=== PATIENT | male | born 1980 | race Caucasian/White ===

== ENCOUNTER → 2020-08-21 07:50 | Outpatient (CLI) | payer OTHER ==
[2020-08-21 09:01] LABS: BASOPHILS 0.2 % (0-2); EOSINOPHILS 7.1 % (0-7); HEMATOCRIT 43.1 % (42.0-54.0); HEMOGLOBIN 14.6 g/dL (13.5-17.5); IMMATURE GRANULOCYTES 0.2 % (0-5); LYMPHOCYTE ABS# 1.98 10x3/uL (1.32-3.57); LYMPHOCYTES 33.6 % (15-50); MCH 29.4 pg (26.0-34.0); MCHC 33.9 g/dL (31.0-37.0); MCV 86.7 fL (80.0-100.0); MEAN PLATELET VOLUME 9.7 fL (7.4-10.4); NEUTROPHIL ABS# 3.06 10x3/uL (1.78-5.38); NEUTROPHILS 51.9 % (40-80); PLATELET COUNT 209 10x3/uL (130-400); RBC 4.97 10x6/uL (4.20-6.10); RDW 12.2 % (11.5-14.5); WBC 5.9 10x3/uL (4.8-10.8)
[2020-08-21 09:13] LABS: PROTIME 12.2 SECONDS (11.6-15.0)
[2020-08-21 09:17] LABS: ALBUMIN 3.6 g/dL (3.4-5.0); ALKALINE PHOSPHATASE 80 U/L (30-120); ALT (SGPT) 20 U/L (10-68); BILIRUBIN - TOTAL 0.38 mg/dL (0.2-1.3); CALC OSMOLALITY 276 mosm/kg (275-300); CALCIUM 8.7 mg/dL (8.5-10.1); CHLORIDE - SERUM 104 mmol/L (98-107); CREATININE - SERUM 0.8 mg/dL (0.6-1.3); GLUCOSE 112 mg/dL (74-106); POTASSIUM - SERUM 4.4 mmol/L (3.5-5.1); PROTEIN - SERUM 7.3 g/dL (6.4-8.2); SODIUM 137 mmol/L (136-145); UREA NITROGEN 18 mg/dL (7-18); eGFR NON AFRICAN AMERICAN > 90 mL/min (90-120)
[2020-08-21 09:51] LABS: APTT 28.2 SECONDS (22.8-39.4)
[2020-08-22 10:10] LABS: HEPATITIS C ANTIBODY <0.1 (0.0-0.9)
== END | disposition home or self-care (01) ==
LOC: D.US 07:50
PROVIDERS: ATTEND Internal Medicine Hematology & Oncology
DX: R23.3 Spontaneous ecchymoses (principal); I87.2 Venous insufficiency (chronic) (peripheral)